=== PATIENT | male | born 1990 | race Caucasian/White ===

== ENCOUNTER 2019-03-17 12:26 | Emergency (ER) | payer MEDICAID, OTHER ==
[~2019-03-17] VITALS: Wt 76.4 kg
--- NOTE | 2019-03-17 16:12 | ERD ---
ER Documentation Chief Complaint Chief Complaint Palpitations HPI This is a 28-year-old male who states he had 4 months of off-and-on palpitations. He says that today he was working at his job when he felt his heart skip around beats but no fast heartbeat. No syncope or dizziness no chest pain or short of breath. He admits to drinking 2 coffees a day in addition to 5 sodas. Currently he is asymptomatic ROS All systems reviewed and are negative except as per history of present illness. Medications Home Meds No Active Prescriptions or Reported Meds Allergies Allergies: Coded Allergies: No Known Allergy (Unverified , 03/17/19) PMhx/Soc Medical and Surgical Hx: pt denies Medical Hx, pt denies Surgical Hx History of Surgery: No Hx Neurological Disorder: No Hx Respiratory Disorders: No Hx Cardiac Disorders: No Hx Psychiatric Problems: No Hx Miscellaneous Medical Probl: No Hx Alcohol Use: Yes (Sober for 4 months) Hx Substance Use: No Hx Tobacco Use: Yes Smoking Status: Former smoker FmHx Family History: No coronary disease Physical Exam Vitals Vital Signs Date Temp Pulse Resp B/P (MAP) Pulse Ox O2 O2 Flow FiO2 Time Delivery Rate 03/17/19 97.5 75 18 149/77 99 12:37 (101) Physical Exam Const: Well-developed, well-nourished Head: Atraumatic, normocephalic Eyes: Normal Conjunctiva, PERRLA, EOMI, normal sclera, no nystagmus ENT: Normal External Ears, Nose and Mouth, moist mucus membranes. Neck: Full range of motion. No meningismus, no lymphadenopathy. Resp: Clear to auscultation bilaterally, no wheezing, rhonchi, rales Cardio: Regular rate and rhythm, no murmurs, S1 S2 present Abd: Soft, non tender x 4, non distended. Normal bowel sounds, no guarding or rebound, no pulsitile abdominal masses or bruits Skin: No petechiae or rashes, no ecchymosis , no maculopapular rash Back: No midline or flank tenderness Ext: No cyanosis, or edema, FROM x 4, normal inspection, neurovascularly intact x 4 Neur: Awake and alert, STR 5/5 x 4, sensation intact x 4, no focal findings, cerebellum intact Psych: Normal Mood and Affect Result Diagram: 03/17/19 1502 Results 24 hrs Laboratory Tests Test 03/17/19 15:02 Sodium Level 141 mmol/L Potassium Level 4.5 mmol/L Chloride Level 107 mmol/L Carbon Dioxide Level 23 mmol/L Anion Gap 11 Blood Urea Nitrogen 15 mg/dl Creatinine 0.84 mg/dl Est Glomerular Filtrat Rate mL/min > 60 mL/min Glucose Level 103 mg/dl Calcium Level 9.6 mg/dl Procedures/MDM EKG: Rate/Rhythm: Sinus rhythm with right axis deviation QRS, ST, QT: NORMAL [place], QRS, QT] Impression: NORMAL EKG Patient is having palpitations likely due to caffeine abuse. He is having 2 coffees +5 sodas. Discussed with him the need to decrease his caffeine intake greatly as this is likely the cause of his symptoms. His electrolytes are stable Departure Diagnosis: Primary Impression: Caffeine abuse Additional Impression: Palpitations Condition: Stable Patient Instructions: Palpitations MARTINEZ GREENWOOD DO March 17, 2019 16:12
[2019-03-17 16:59] VITALS: BP 131/82; PULSE 66; RESP 20
== END 2019-03-17 17:00 | disposition home or self-care (01) ==
LOC: E/R 12:26
DX: F15.10 Other stimulant abuse, uncomplicated (principal); Z87.891 Personal history of nicotine dependence
CPT/HCPCS: 80048; 93005; Z7502

== ENCOUNTER 2019-03-30 08:55 | Emergency (ER) | payer SELFPAY ==
[~2019-03-30] VITALS: Wt 72.0 kg
[2019-03-30 09:00] VITALS: BP 148/81; PULSE 68; RESP 18
[2019-03-30] MEDS ORDERED: HYDR-3029 PO (10:51)
[2019-03-30] MEDS ORDERED: NAPR-985 PO (10:51)
--- NOTE | 2019-03-30 11:44 | ERD ---
ER Documentation Chief Complaint Chief Complaint SEEN HERE WITH SAME, CHEST PRESSURE, WEAKNESS, ANXIOUS HPI 20-year-old male presenting with chest pressure to the left side and anxiety feeling. He states is been going to the last 4 days it comes and goes. He has not taken medication for his symptoms. He has some mild shortness of breath. Denies any coughing. Denies fevers. Denies medical problems. Surgical history denies. Social history denies ROS All systems reviewed and are negative except as per history of present illness. Medications Home Meds Active Scripts Hydroxyzine Hcl* (Hydroxyzine Hcl*) 10 Mg Tablet, 10 MG PO Q6H PRN for ANXIETY, #30 TAB Prov:DARWIN BOSS PA-C 03/30/19 Naproxen* (Naprosyn*) 500 Mg Tablet, 500 MG PO BID PRN for PAIN AND/OR INFLAMMATION, #30 TAB Prov:DARWIN BOSS PA-C 03/30/19 Allergies Allergies: Coded Allergies: No Known Allergy (Unverified , 03/17/19) PMhx/Soc History of Surgery: No Hx Neurological Disorder: No Hx Respiratory Disorders: No Hx Cardiac Disorders: No Hx Psychiatric Problems: No Hx Miscellaneous Medical Probl: No Hx Alcohol Use: Yes (Sober for 4 months) Hx Substance Use: No Hx Tobacco Use: Yes Smoking Status: Former smoker FmHx Family History: No diabetes, No coronary disease, No other Physical Exam Vitals Vital Signs Date Temp Pulse Resp B/P (MAP) Pulse Ox O2 O2 Flow FiO2 Time Delivery Rate 03/30/19 98.1 68 18 148/81 99 09:00 (103) Physical Exam GENERAL: The patient is well-appearing, well-nourished, in no acute distress HEENT: Atraumatic. Conjunctivae are pink. Pupils equal, round, and reactive to light. There is no scleral icterus. Tympanic membranes clear bilaterally. Oropharynx clear. NECK: C-spine is soft and supple. There is no meningismus. There is no cervical lymphadenopathy. CHEST: Clear to auscultation bilaterally. There are no rales, wheezes or rhonchi. HEART: Regular rate and rhythm. No murmurs, clicks, rubs or gallops. Result Diagram: 03/30/19 1003 03/30/19 1003 Results 24 hrs Laboratory Tests Test 03/30/19 10:03 White Blood Count 4.4 10^3/ul Red Blood Count 5.17 10^6/ul Hemoglobin 14.8 g/dl Hematocrit 45.7 % Mean Corpuscular Volume 88.4 fl Mean Corpuscular Hemoglobin 28.6 pg Mean Corpuscular Hemoglobin Concent 32.4 g/dl Red Cell Distribution Width 12.5 % Platelet Count 219 10^3/UL Mean Platelet Volume 9.6 fl Immature Granulocytes % 0.200 % Neutrophils % 65.1 % Lymphocytes % 27.0 % Monocytes % 6.6 % Eosinophils % 0.9 % Basophils % 0.2 % Nucleated Red Blood Cells % 0.0 /100WBC Immature Granulocytes # 0.010 10^3/ul Neutrophils # 2.9 10^3/ul Lymphocytes # 1.2 10^3/ul Monocytes # 0.3 10^3/ul Eosinophils # 0.0 10^3/ul Basophils # 0.0 10^3/ul Nucleated Red Blood Cells # 0.0 10^3/ul Sodium Level 143 mmol/L Potassium Level 4.9 mmol/L Chloride Level 106 mmol/L Carbon Dioxide Level 29 mmol/L Anion Gap 8 Blood Urea Nitrogen 11 mg/dl Creatinine 0.80 mg/dl Est Glomerular Filtrat Rate mL/min > 60 mL/min Glucose Level 106 mg/dl Calcium Level 9.8 mg/dl Total Bilirubin 0.6 mg/dl Direct Bilirubin 0.00 mg/dl Indirect Bilirubin 0.6 mg/dl Aspartate Amino Transf (AST/SGOT) 27 IU/L Alanine Aminotransferase (ALT/SGPT) 26 IU/L Alkaline Phosphatase 119 IU/L Troponin I < 0.012 ng/ml Total Protein 8.1 g/dl Albumin 4.8 g/dl Globulin 3.30 g/dl Albumin/Globulin Ratio 1.45 Lipase 51 U/L Procedures/MDM DIAGNOSTIC IMAGING REPORT Patient: MAURICIO KAHN : 04/02/1998 Age: 20 Sex: M MR #: [id number] DOS: 03/30/19 0948 Ordering MD: DESIREE BOSS PA-C Location: [facility] Room/Bed: PROCEDURE: XR Chest. CLINICAL INDICATION: chest pain TECHNIQUE: Single frontal view of the chest was obtained COMPARISON: None FINDINGS: The heart and mediastinum are within normal limits. The lungs are clear. There is no pleural effusion or pneumothorax. RPTAT: AA IMPRESSION: No acute disease. EKG: Rate/Rhythm: 64 bpm. Normal Sinus Rhythm QRS, ST, T-waves: No changes consistent w/ acute ischemia Impression: No evidence of ischemia or arrhythmia MDM: 20-year-old male presenting with chest pain. I have low suspicion for cardiac or pulmonary emergency. Patient's blood work and imaging is within normal limits. Vitals are stable exam is non-concerning EKG is within normal limits. Patient will be discharged with supportive medications and told to follow-up with primary care within 1 to 2 days for close evaluation. Patient is told if symptoms change or worsen to return immediately to the ER. All questions answered at discharge Departure Diagnosis: Primary Impression: Chest pain Condition: Stable Patient Instructions: Chest Pain, Uncertain Cause Referrals: [facility] YOU HAVE RECEIVED A MEDICAL SCREENING EXAM AND THE RESULTS INDICATE THAT YOU DO NOT HAVE A CONDITION THAT REQUIRES URGENT TREATMENT IN THE EMERGENCY DEPARTMENT. FURTHER EVALUATION AND TREATMENT OF YOUR CONDITION CAN WAIT UNTIL YOU ARE SEEN IN YOUR DOCTORS OFFICE WITHIN THE NEXT 1-2 DAYS. IT IS YOUR RESPONSIBILITY TO MAKE AN APPOINTMENT FOR FOLOW-UP CARE. IF YOU HAVE A PRIMARY DOCTOR --you should call your primary doctor and schedule an appointment IF YOU DO NOT HAVE A PRIMARY DOCTOR YOU CAN CALL OUR PHYSICIAN REFERRAL HOTLINE AT IF YOU CAN NOT AFFORD TO SEE A PHYSICIAN YOU CAN CHOSE FROM THE FOLLOWING [facility] [address] [facility] [facility] [address] [facility] [facility] [address] [facility] [facility] [address] [facility]. [facility] [address] [facility]. [facility]. [address] Additional Instructions: FOLLOW UP WITH YOUR PRIMARY CARE PHYSICIAN TOMORROW.Return to this facility if you are not improving as expected. DARWIN BOSS PA-C March 30, 2019 11:44
--- NOTE | 2019-04-02 14:50 | RADRPT ---
Vent Rate: 70 bpm RR Interval: 0 msec SD Interval: 114 msec QRS Duration: 100 msec QT Interval: 366 msec QTC Interval: 395 msec P-R-T [place]: 67 - 86 - 38 degrees Normal sinus rhythm Voltage criteria for left ventricular hypertrophy ST abnormality, possible digitalis effect Abnormal ECG Electronically Signed By: [facility]
--- NOTE | 2019-04-02 14:50 | RADRPT ---
Vent Rate: 64 bpm RR Interval: 0 msec [place] Interval: 118 msec QRS Duration: 94 msec QT Interval: 376 msec QTC Interval: 387 msec P-R-T [place]: 62 - 85 - 61 degrees Normal sinus rhythm Normal ECG Electronically Signed By: [facility]
== END 2019-03-30 16:14 | disposition home or self-care (01) ==
LOC: FTE 08:55
DX: R07.89 Other chest pain (principal); Z87.891 Personal history of nicotine dependence
CPT/HCPCS: 71045; 80053; 83690; 84484; 85025; 93005